=== PATIENT | male | born 1930 | race Two or more races ===

== ENCOUNTER 2020-10-19 06:23 | Day surgery (SDC) | payer OTHER | END 2020-10-19 13:45 | disposition home or self-care (01) | LOC: AMB-ENDOS 06:23 | PROVIDERS: ATTEND Surgery | DX: C18.2 Malignant neoplasm of ascending colon (principal); K64.8 Other hemorrhoids; Z20.822 Contact with and (suspected) exposure to COVID-19 ==

== ENCOUNTER 2020-11-22 10:45 | Inpatient (IN) | payer OTHER ==
[~2020-11-22] VITALS: Ht 154.9 cm; Wt 57.2 kg
[2020-11-22] MEDS ORDERED: SYNTH PO (13:49)
[2020-11-22] MEDS ORDERED: ATORVAS PO (13:49)
[2020-11-26] MEDS ORDERED: GABAPENTIN100 M2 (08:56)
[2020-11-26] MEDS ORDERED: ATORVASTATIN CA40 MG (08:56)
[2020-11-26] MEDS ORDERED: LEVOTHYROXINE100 MCG (08:56)
[2020-11-26] MEDS ORDERED: PANTOPRAZOLE SO40 MG (08:57)
[2020-11-26] MEDS ORDERED: METFORMIN HCL500 M4 (08:57)
[2020-11-26] MEDS ORDERED: RAMIPRIL1.25 MG (08:57)
[2020-11-26] MEDS ORDERED: TAMSULOSIN HCL0.4 MG (08:57)
[2020-11-28] MEDS ORDERED: ULTRAM50 MG PO (10:59)
[2020-11-28] MEDS ORDERED: INTESTINEX680 M1 PO (10:59)
== END 2020-11-28 13:09 | disposition home or self-care (01) | DRG 331 ==
LOC: SURG 11-25 05:40 → O/R 11-25 05:40 → SURH 11-25 10:15 → SURG 11-25 14:06
PROVIDERS: ADMIT Surgery; ATTEND Surgery
PROC: 07BD0ZX Excision of Aortic Lymphatic, Open Approach, Diagnostic (ICD-10-PCS; 2020-11-25)
PROC: 3E0F7SF Introduction of Other Gas into Respiratory Tract, Via Natural or Artificial Opening (ICD-10-PCS; 2020-11-25)
PROC: 0DTF0ZZ Resection of Right Large Intestine, Open Approach (ICD-10-PCS; principal; 2020-11-25 10:15)
DX: C18.2 Malignant neoplasm of ascending colon (principal); R93.5 Abnormal findings on diagnostic imaging of other abdominal regions, including retroperitoneum; R63.4 Abnormal weight loss; R59.0 Localized enlarged lymph nodes; D50.0 Iron deficiency anemia secondary to blood loss (chronic); Z20.822 Contact with and (suspected) exposure to COVID-19